=== PATIENT | male | born 1955 | race Caucasian/White ===

== ENCOUNTER → 2020-02-10 | Emergency (ER) | payer BC, MEDICARE, OTHER ==
[~2020-02-10] VITALS: Ht 180.3 cm; Wt 90.7 kg
[~2020-02-10] MED LIST: SODIUM CHLORIDE 0.9% 1,000 ML IV ONE; THIAMINE 100mg/ml INJ (200mg/2ml VIAL) IV ONE
[2020-02-10 11:22] VITALS: BP 114/80
== END | disposition home or self-care (01) ==
LOC: ER 09:46 → EDBD 09:46
DX: S09.8XXA Other specified injuries of head, initial encounter (principal); G93.41 Metabolic encephalopathy; F10.129 Alcohol abuse with intoxication, unspecified; E86.0 Dehydration; Y90.9 Presence of alcohol in blood, level not specified; W01.0XXA Fall on same level from slipping, tripping and stumbling without subsequent striking against object, initial encounter; Y93.89 Activity, other specified; Y92.89 Other specified places as the place of occurrence of the external cause; Y99.8 Other external cause status
CPT/HCPCS: 70450; 71250; 72125; 96361; 96374; 99285; J3411; J7030

== ENCOUNTER 2023-01-09 12:48 | Emergency (ER) | payer BC, OTHER ==
[~2023-01-09] VITALS: Ht 177.8 cm; Wt 70.5 kg
[2023-01-09 13:49] VITALS: BP 116/85
[2023-01-09] MEDS ORDERED: KETOROLAC TROMETH 60MG/2ML VIAL IM ONE (14:15)
[2023-01-09] MEDS ORDERED: DexAMETHasone SOD PHOS 10MG/1ML VIAL INJ IM ONE (14:15)
[2023-01-09] MEDS ORDERED: methylPREDNISolone SOD SUCC 40 MG/ML VL IM ONE (14:15)
[2023-01-09] MEDS ORDERED: INDO50SU RE (15:11)
[2023-01-09] MEDS ORDERED: COLC1CAP PO (15:11)
== END 2023-01-09 15:17 | disposition home or self-care (01) ==
LOC: ER 12:52
DX: M10.9 Gout, unspecified (principal); M79.671 Pain in right foot; R22.41 Localized swelling, mass and lump, right lower limb; F12.10 Cannabis abuse, uncomplicated; F10.20 Alcohol dependence, uncomplicated; Y90.9 Presence of alcohol in blood, level not specified
CPT/HCPCS: 96372; 99284; J1100; J1885